=== PATIENT | male | born 1935 | race Caucasian/White ===

== ENCOUNTER → 2019-08-30 17:44 | Outpatient (BNVA) | payer MEDICARE, SELFPAY | PROVIDERS: Visit Provider Emergency Medicine | DX: Z11.59 Encounter for screening for other viral diseases (principal) | CPT/HCPCS: 87400; 87635 ==

== ENCOUNTER → 2019-10-22 09:24 | Outpatient (BNVA) | payer MEDICARE, SELFPAY | PROVIDERS: Referring Provider Nurse Practitioner Family; Visit Provider Nurse Practitioner | DX: R42 Dizziness and giddiness (principal); Z87.891 Personal history of nicotine dependence | CPT/HCPCS: 80048; 85025; 85651; 99204 ==

== ENCOUNTER 2019-10-22 11:30 | Outpatient (CLI) | payer MEDICARE, SELFPAY ==
[2019-10-22 11:52] LABS: Basophils # 0.1 10^3/uL (0.0-0.1); Eosinophils # 0.1 10^3/uL (0.0-0.8); Hematocrit 51.1 % (42.0-52.0); Hemoglobin 17.1 g/dL (11.7-16.6); Lymphocytes # 2.7 10^3/uL (0.8-4.8); Lymphocytes % 38.6 %; Mean Corpuscular HGB Conc 33.5 g/dL (30.0-36.0); Mean Corpuscular Hemoglobin 31.8 pg (28.0-34.0); Mean Corpuscular Volume 95.2 fL (80-94); Mean Platelet Volume 12.4 fL (7.4-10.4); Monocytes % 13.9 %; Neutrophils # 3.07 10^3/uL (1.8-7.7); Neutrophils % 44.4 %; Nucleated Red Blood Cells % 0 %; Platelet Count 163 10^3/cmm (130-400); Red Blood Count 5.37 10^6/uL (4.1-5.3); Red Cell Distribution Width 12.5 % (12.1-15.1); White Blood Count 6.9 10^3/uL (4.0-10.0)
[2019-10-22 12:34] LABS: Anion Gap 12.1 (5-19); Blood Urea Nitrogen 19 mg/dL (8-23); Calcium 9.5 mg/dL (8.5-10.5); Carbon Dioxide 27 mmol/L (22-29); Chloride 106 mmol/L (98-107); Glucose 96 mg/dL (65-115); Osmolality Calculated 288 mOsm/kg (285-295); Potassium 4.1 mmol/L (3.5-5.1); Sodium 141 mmol/L (136-145)
[2019-10-22 13:02] LABS: Erythrocyte Sedimentation Rate 0 mm/hr (0-10)
== END 2019-10-22 11:31 | disposition home or self-care (01) ==
LOC: LAB 11:34
PROVIDERS: PCP Nurse Practitioner Family; Visit Provider Nurse Practitioner
DX: R42 Dizziness and giddiness (principal)
CPT/HCPCS: 80048; 85025; 85651

== ENCOUNTER 2019-11-14 08:35 | Outpatient (RCR) | payer MEDICARE, SELFPAY | END 2019-11-26 23:59 | disposition home or self-care (01) | LOC: SPT 08:35 | PROVIDERS: PCP Nurse Practitioner Family; Referring Provider Nurse Practitioner; Visit Provider Nurse Practitioner | DX: R42 Dizziness and giddiness (principal) | CPT/HCPCS: 95992; 97162 ==

== ENCOUNTER → 2020-01-12 13:40 | Outpatient (BNVA) | payer MEDICARE, SELFPAY | PROVIDERS: PCP Nurse Practitioner Family; Visit Provider Specialist | DX: H81.10 Benign paroxysmal vertigo, unspecified ear (principal); R51.9 Headache, unspecified; Z87.891 Personal history of nicotine dependence | CPT/HCPCS: 99214 ==